=== PATIENT | female | born 1995 | race Hispanic/Latino ===

== ENCOUNTER 2022-06-09 18:15 | Emergency (ER) | payer OTHER ==
[~2022-06-09] VITALS: Ht 152.4 cm; Wt 93.0 kg
[2022-06-09 19:37] VITALS: BP 149/85
[2022-06-09 19:51] LABS: APPEARANCE,URINE CLOUDY (CLEAR); BILIRUBIN,URINE NEGATIVE (NEGATIVE); COLOR,URINE LIGHT-YELLOW (YELLOW); GLUCOSE, URINE (UA) NEGATIVE (NEGATIVE); KETONES,URINE NEGATIVE (NEGATIVE); LEUKOCYTE ESTERASE ,URINE 500 Leu/uL (NEGATIVE); NITRATE,URINE NEGATIVE (NEGATIVE); OCCULT BLOOD,URINE SMALL (NEGATIVE); PH,URINE 6.5 (5.0-8.0); PROTEIN,URINE 20 mg/dL (NEGATIVE)
[2022-06-09 20:22] LABS: BACTERIA,URINE RARE /HPF (None Seen); CALCIUM OXALATE CRYSTALS,UR RARE /LPF (None Seen); MUCUS,URINE RARE LPF (None Seen); RBC,URINE 26-50 /HPF (0-1); SQUAMOUS EPITHELIAL CELL,UR MOD /HPF (0-2); TRICHOMONAS,URINE RARE /LPF (None Seen); WBC,URINE 51-100 /HPF (0-1)
[2022-06-09] MEDS ORDERED: CEPH500B PO (21:31)
== END 2022-06-09 21:48 | disposition home or self-care (01) ==
LOC: EDH 18:15
DX: N39.0 Urinary tract infection, site not specified (principal)
CPT/HCPCS: 81001; 81025; 87088

== ENCOUNTER 2023-07-03 18:36 | Emergency (ER) | payer BC, OTHER ==
[~2023-07-03] VITALS: Ht 152.4 cm; Wt 95.3 kg
[~2023-07-03 18:36] MED LIST: CEPH500B PO
[2023-07-03] MEDS: CLINDAMYCIN IVPB 600MG/50ML 50 ML IV SCH (19:45)
[2023-07-03 19:49] LABS: BASOPHILS # (AUTO) 0.03 K/uL (0.00-0.20); BASOPHILS % (AUTO) 0.3 % (0.0-5.0); EOSINOPHILS # (AUTO) 0.09 K/uL (0.00-0.70); EOSINOPHILS % (AUTO) 0.8 % (0.0-8.0); HEMATOCRIT 40.8 % (36-48); IMMATURE GRANULOCYTE ABSOLUTE 0.03 K/uL (0-1); LYMPHOCYTES # (AUTO) 3.9 K/uL (1.0-4.8); LYMPHOCYTES % (AUTO) 32.8 % (21.0-51.0); MEAN CORPUSCULAR HEMOGLOBIN 28.9 pg (27.0-33.0); MEAN CORPUSCULAR HGB CONC 33.8 g/dL (32.0-36.0); MEAN CORPUSCULAR VOLUME 85.5 fL (79-99); MONOCYTES # (AUTO) 0.9 K/uL (0.1-1.0); MONOCYTES % (AUTO) 7.9 % (3.0-13.0); NEUTROPHILS # (AUTO) 6.9 K/uL (1.8-7.7); NEUTROPHILS % (AUTO) 57.9 % (40.0-77.0); PLATELET COUNT (AUTO) 312 K/uL (130-400); RED BLOOD CELL COUNT(AUTO) 4.77 MIL/uL (4.00-5.50); RED CELL DISTRIBUTION WIDTH 12.6 % (11.0-15.5); WHITE BLOOD COUNT (AUTO) 11.8 K/uL (4.8-10.8)
[2023-07-03 20:01] LABS: CREATININE 0.7 mg/dL (0.5-1.0); POTASSIUM 3.8 mmol/L (3.5-5.1)
[2023-07-03 20:04] LABS: ALBUMIN 3.8 g/dL (3.5-5.0); BILIRUBIN,TOTAL 0.9 mg/dL (0.2-1.0); TOTAL PROTEIN, SERUM 7.8 g/dL (6.0-8.3)
[2023-07-03 20:41] VITALS: BP 118/72; PULSE 74; RESP 18; O2SAT 98
[2023-07-03] MEDS ORDERED: CLIN-141 PO (21:06)
== END 2023-07-03 21:21 | disposition home or self-care (01) ==
LOC: EDH 18:36
DX: H00.035 Abscess of left lower eyelid (principal)
CPT/HCPCS: 99284; 96365; 80053; 84703; 85025; 87040 ×2; 83605; 36415; J3490